=== PATIENT | male | born 1970 | race American Indian/Alaskan Native ===

== ENCOUNTER 2018-05-11 18:10 | Inpatient (IN) | payer BC ==
[2018-05-11] MEDS ORDERED: ASPIRIN PO ONE (18:32)
[2018-05-11] MEDS ORDERED: CATAPRES ONE (18:34)
[2018-05-11] MEDS ORDERED: CATAPRES PO ONE (18:42)
[2018-05-11 18:56] LABS: Basophils % (Auto) 0.6 % (0.0-1.8); Eosinophils # (Auto) 0.1 K/mm3 (0.0-0.4); Eosinophils % (Auto) 1.7 % (0.0-4.3); Hematocrit 37.6 % (35.5-45.6); Hemoglobin 12.1 gm/dl (11.8-15.2); Lymphocytes # (Auto) 2.3 K/mm3 (1.2-5.4); Lymphocytes % (Auto) 26.8 % (13.4-35.0); Mean Corpuscular HGB Conc 32 % (32-34); Mean Corpuscular Hemoglobin 28 pg (28-32); Mean Corpuscular Volume 86 fl (84-94); Monocytes # (Auto) 0.3 K/mm3 (0.0-0.8); Monocytes % (Auto) 3.6 % (0.0-7.3); Platelet Count 272 K/mm3 (140-440); Red Blood Count 4.37 M/mm3 (3.65-5.03); Red Cell Distribution Width 14.3 % (13.2-15.2)
[2018-05-11 19:14] LABS: Calcium 8.4 mg/dL (8.4-10.2)
[2018-05-11] MEDS ORDERED: ANTIVERT PO ONE (23:25)
[2018-05-11] MEDS ORDERED: ZOFRAN IV ONE (23:25)
--- NOTE | 2018-05-11 23:31 | Emergency Department Report ---
HPI - General Chief Complaint: Chest Pain Time Seen by Provider: 05/11/18 23:19 - HPI HPI: Room 5 The patient is a 47-year-old male presenting with chief complaint of dizziness nausea vomiting. The patient states today at approximately 15:00 he began feeling dizzy and experienced nausea and vomiting started seeing spots and became diaphoretic. The patient states these are the exact symptoms he had in the past attributed to vertigo. The patient states normally [id number] motion sickness medication helped but it did not today. The patient states after approximately 3 hours notices symptoms are worsening and this prompted him to come to the ED. Patient denied having chest pain or discomfort of any type, shortness of breath or diarrhea. Location: Head Duration: Constant since 15:00 Quality: Vertigo Severity: Moderate Modifying factors: [see above] Context: [see above] Mode of transportation: Unknown ED Past Medical Hx - Past Medical History Hx Hypertension: Yes Hx Heart Attack/AMI: Yes Hx Diabetes: Yes Hx Renal Disease: Yes - Surgical History Past Surgical History?: No - Family History Family history: no significant - Social History Smoking Status: Former Smoker (none 3 years) Substance Use Type: None ED Review of Systems ROS: Stated complaint: VERTIGO Other details as noted in HPI Constitutional: no symptoms reported Eyes: vision change. denies: eye pain ENT: denies: throat pain Respiratory: denies: shortness of breath Cardiovascular: denies: chest pain Endocrine: denies: unexplained weight loss Gastrointestinal: nausea, vomiting. denies: abdominal pain, diarrhea Genitourinary: denies: dysuria Musculoskeletal: denies: back pain Skin: denies: change in color Neurological: vertigo. denies: headache Physical Exam - Physical Exam Vital Signs: Vital Signs 05/11/18 05/11/18 05/11/18 18:28 18:43 19:34 Temperature 98 F Pulse Rate 93 H 88 84 Respiratory 16 Rate Blood Pressure 245/126 246/125 Blood Pressure 244/131 [Left] O2 Sat by Pulse 97 Oximetry 05/11/18 21:04 Temperature Pulse Rate 74 Respiratory Rate Blood Pressure Blood Pressure 228/124 [Left] O2 Sat by Pulse Oximetry Physical Exam: GENERAL: The patient is well-developed well-nourished male lying on stretcher not appearing to be in acute distress. [] HEENT: Normocephalic. Atraumatic. Extraocular motions are intact. Patient has moist mucous membranes. No nystagmus noted NECK: Supple. No meningitic signs are noted. Trachea midline CHEST/LUNGS: Clear to auscultation. There is no respiratory distress noted. HEART/CARDIOVASCULAR: Regular. There is no tachycardia. There is no gallop rub or murmur. ABDOMEN: Abdomen is soft, nontender. Patient has normal bowel sounds. There is no abdominal distention. SKIN: There is no rash. There is no edema. There is no diaphoresis. NEURO: The patient is awake, alert, and oriented. The patient is cooperative. The patient has no focal neurologic deficits. The patient has normal speech. Cranial nerves II through XII grossly intact, no drift MUSCULOSKELETAL: There is no evidence of acute injury. ED Course Vital Signs 05/11/18 05/11/18 05/11/18 18:28 18:43 19:34 Temperature 98 F Pulse Rate 93 H 88 84 Respiratory 16 Rate Blood Pressure 245/126 246/125 Blood Pressure 244/131 [Left] O2 Sat by Pulse 97 Oximetry 05/11/18 21:04 Temperature Pulse Rate 74 Respiratory Rate Blood Pressure Blood Pressure 228/124 [Left] O2 Sat by Pulse Oximetry ED Medical Decision Making - Lab Data Result diagrams: 05/11/18 18:42 05/11/18 18:42 Laboratory Tests 05/11/18 05/11/18 18:42 18:42 WBC 8.5 RBC 4.37 Hgb 12.1 Hct 37.6 MCV 86 MCH 28 MCHC 32 RDW 14.3 Plt Count 272 Lymph % (Auto) 26.8 Barnes % (Auto) 3.6 Eos % (Auto) 1.7 Baso % (Auto) 0.6 Lymph # 2.3 Barnes # 0.3 Eos # 0.1 Baso # 0.0 Seg Neutrophils % 67.3 Seg Neutrophils # 5.7 Sodium 137 Potassium 5.8 H Chloride 101.6 Carbon Dioxide 19 L Anion Gap 22 BUN 42 H Creatinine 3.3 H Estimated GFR 24 BUN/Creatinine Ratio 13 Glucose 193 H Calcium 8.4 Troponin T 0.075 H Triglycerides 321 H Cholesterol 374 H LDL Cholesterol Direct 298 H HDL Cholesterol 34 L Cholesterol/HDL Ratio 11.00 Laboratory Tests 05/11/18 05/11/18 05/11/18 18:42 18:42 23:27 WBC 8.5 RBC 4.37 Hgb 12.1 Hct 37.6 MCV 86 MCH 28 MCHC 32 RDW 14.3 Plt Count 272 Lymph % (Auto) 26.8 Barnes % (Auto) 3.6 Eos % (Auto) 1.7 Baso % (Auto) 0.6 Lymph # 2.3 Barnes # 0.3 Eos # 0.1 Baso # 0.0 Seg Neutrophils % 67.3 Seg Neutrophils # 5.7 Sodium 137 Potassium 5.8 H Chloride 101.6 Carbon Dioxide 19 L Anion Gap 22 BUN 42 H Creatinine 3.3 H Estimated GFR 24 BUN/Creatinine Ratio 13 Glucose 193 H Calcium 8.4 Troponin T 0.075 H 0.075 H Triglycerides 321 H Cholesterol 374 H LDL Cholesterol Direct 298 H HDL Cholesterol 34 L Cholesterol/HDL Ratio 11.00 - Radiology Data Radiology results: report reviewed (CT head), image reviewed (CT head) [facility] [address] [place] [address] Cat Scan Report Signed Patient: ALEX TORRE MR#: [id number] : 1970 Acct:[id number] Age/Sex: 47 / M ADM Date: 05/11/18 Loc: ED Attending Dr: Ordering Physician: APOLONIA TATE MD Date of Service: 05/11/18 Procedure(s): CT head/brain wo con Accession Number(s): [id number] cc: APOLONIA TATE MD FINAL REPORT PROCEDURE: CT HEAD/BRAIN WO CON TECHNIQUE: Computerized tomography of the head was performed without contrast material. HISTORY: vertigo COMPARISON: No prior studies are available for comparison. FINDINGS: Skull and scalp: Normal. Paranasal sinuses: Normal. Ventricles and subarachnoid spaces: Normal. Cerebrum : No evidence of hemorrhage, acute infarction or mass . Cerebellum and brainstem : No evidence of hemorrhage, acute infarction or mass. Vasculature: Normal. Comments: None. IMPRESSION: Normal Examination Transcribed By: [facility] Dictated By: PRINCE GREGG MD Electronically Authenticated By: PRINCE GREGG MD Signed Date/Time: 05/11/182347 DD/ 47 TD/TT: 05/11/182347 - Differential Diagnosis vertigo, ACS ICH Critical care attestation.: If time is entered above; I have spent that time in minutes in the direct care of this critically ill patient, excluding procedure time. ED Disposition Clinical Impression: Renal insufficiency, Hyperkalemia, Dizziness, Nausea & vomiting, Elevated troponin Disposition: DC-09 OP ADMIT IP TO THIS HOSP Is pt being admited?: Yes Does the pt Need Aspirin: No (renal insufficiency) Condition: Fair Referrals: PRIMARY CARE,MD [Primary Care Provider] - 3-5 Days Time of Disposition: 00:42 (hospitalist notified (Dr. Whitlock))
[2018-05-11] MEDS ORDERED: HumuLIN R IV ONE (23:36)
[2018-05-11] MEDS ORDERED: KIONEX PO ONE (23:36)
[2018-05-11] MEDS ORDERED: PROVENTIL IH ONE (23:36)
[2018-05-11] MEDS ORDERED: D50W (25GM) Syringe IV ONE (23:36)
--- NOTE | 2018-05-11 23:53 | Cat Scan Report ---
FINAL REPORT PROCEDURE: CT HEAD/BRAIN WO CON TECHNIQUE: Computerized tomography of the head was performed without contrast material. HISTORY: vertigo COMPARISON: No prior studies are available for comparison. FINDINGS: Skull and scalp: Normal. Paranasal sinuses: Normal. Ventricles and subarachnoid spaces: Normal. Cerebrum: No evidence of hemorrhage, acute infarction or mass . Cerebellum and brainstem: No evidence of hemorrhage, acute infarction or mass. Vasculature: Normal. Comments: None. IMPRESSION: Normal Examination
[2018-05-12] MEDS ORDERED: PLAVIX PO ONE (00:08)
[2018-05-12] MEDS ORDERED: D50W (25GM) Syringe IV PRN (01:03)
[2018-05-12] MEDS ORDERED: SODIUM CHLORIDE FLUSH SYRINGE 10 ML IV PRN (01:03)
[2018-05-12] MEDS ORDERED: TYLENOL PO PRN (01:03)
[2018-05-12] MEDS ORDERED: ZOFRAN IV PRN (01:03)
[2018-05-12] MEDS ORDERED: NORVASC PO NR (01:14)
[2018-05-12] MEDS ORDERED: APRESOLINE IV PRN (01:14)
[2018-05-12] MEDS ORDERED: NACL 0.45% 1000 ML 1,000 ML IV SCH (02:00)
[2018-05-12] MEDS: APRESOLINE PO SCH ×3 (02:02→17:56)
--- NOTE | 2018-05-12 02:09 | History and Physical Report ---
History of Present Illness Date of examination: 05/12/18 Chief complaint: Dizziness and vomiting since this afternoon History of present illness: 47-year-old -[place] male with multiple medical conditions including hypertension dyslipidemia CHF CAD diabetes and CKD Was seen in the ED with complaints of dizziness and vomiting. He tried some [id number] medication for motion sickness which did not help and he decided to go to the ED. He had about 4 episodes of vomiting. At the time of my evaluation, he states his dizziness and vomiting have improved. He offers no other complaints. During the workup in the ED, he was noted to be hyperkalemic, uncontrolled hypertension and with advanced renal disease and has been admitted for further management. He has not taken any medications for more than 6 months for his multiple medical conditions except insulin which he takes intermittently. He denies any fever or chills. Denies any weight gain or weight loss Past History Past Medical History: CAD, diabetes, heart failure, hypertension, hyperlipidemia , renal failure Past Surgical History: No surgical history Social history: no significant social history. denies: smoking, alcohol abuse, prescription drug abuse, IV drug use Family history: CAD, diabetes, hypertension Medications and Allergies Allergies Allergy/AdvReac Type Severity Reaction Status Date / Time No Known Allergies Allergy Verified 05/11/18 18:27 Active Meds: Active Medications Acetaminophen (Tylenol) 650 mg PO Q4H PRN PRN Reason: Pain MILD(1-3)/Fever >100.5/AMAYA Amlodipine Besylate (Norvasc) 5 mg PO ONCE NR Stop: 05/12/18 03:00 Aspirin (Aspirin) 81 mg PO QDAY [facility] Atorvastatin Calcium (Lipitor) 40 mg PO QHS [facility] Dextrose (D50w (25gm) Syringe) 50 ml IV PRN PRN PRN Reason: Hypoglycemia Famotidine (Pepcid) 10 mg PO BID [facility] Heparin Sodium (Porcine) (Heparin) 5,000 unit SUB-Q Q12HR [facility] Hydralazine HCl (Apresoline) 50 mg PO Q8H MAT Last Admin: 05/12/18 02:02 Dose: 50 mg Hydralazine HCl (Apresoline) 10 mg IV Q6H PRN PRN Reason: Hypertension Sodium Chloride (Nacl 0.45% 1000 Ml) 1,000 mls @ 75 mls/hr IV DIRECT [facility] Insulin Glargine (Lantus) 15 units SUB-Q QHS MAT Insulin Human Lispro (Humalog) 0 unit SUB-Q ACHS MAT; Protocol Ondansetron HCl (Zofran) 4 mg IV Q8H PRN PRN Reason: Nausea And Vomiting Sodium Chloride (Sodium Chloride Flush Syringe 10 Ml) 10 ml IV BID MAT Sodium Chloride (Sodium Chloride Flush Syringe 10 Ml) 10 ml IV PRN PRN PRN Reason: LINE FLUSH Review of Systems Constitutional: no weight loss, no fever, no chills, no fatigue Ears, nose, mouth and throat: no ear pain, no ear discharge, no nasal congestion , no sore throat Cardiovascular: high blood pressure, no chest pain, no orthopnea, no palpitations, no edema, no syncope, no shortness of breath Respiratory: no cough, no shortness of breath, no dyspnea on exertion Gastrointestinal: nausea, vomiting, no abdominal pain, no diarrhea, no constipation, no melena Genitourinary Male: no dysuria, no urinary frequency, no incontinence Rectal: no pain Musculoskeletal: no neck pain, no low back pain Integumentary: no rash Neurological: no seizures, no syncope, no vertigo, no headaches Psychiatric: no anxiety, no depression Endocrine: no polyphagia, no excessive thirst, no polydipsia, no polyuria Exam - Constitutional Vitals: Temp Pulse Resp BP Pulse Ox 98 F 91 H 21 200/117 97 05/11/18 18:28 05/12/18 01:45 05/12/18 01:45 05/12/18 02:02 05/12/18 01:45 General appearance: Present: no acute distress - EENT Eyes: Present: PERRL, EOM intact ENT: hearing intact, clear oral mucosa - Neck Neck: Present: supple, normal ROM. Absent: masses or JVD - Respiratory Respiratory effort: normal Respiratory: bilateral: CTA, negative: rales, rhonchi - Cardiovascular Rhythm: regular Heart Sounds: Present: S1 & S2 - Extremities Extremities: No edema - Abdominal General gastrointestinal: Present: soft, non-tender. Absent: hepatomegaly, splenomegaly Male genitourinary: Present: deferred - Rectal Rectal Exam: deferred - Integumentary Integumentary: Present: clear - Musculoskeletal Musculoskeletal: strength equal bilaterally - Psychiatric Psychiatric: appropriate mood/affect, intact judgment & insight - Neurologic Neurologic: no focal deficits, moves all extremities Results - Labs CBC & Chem 7: 05/11/18 18:42 05/11/18 18:42 Labs: Abnormal lab results 05/11/18 05/11/18 05/12/18 Range/Units 18:42 23:27 00:07 Potassium 5.8 H (3.6-5.0) mmol/L Carbon Dioxide 19 L (22-30) mmol/L BUN 42 H (9-20) mg/dL Creatinine 3.3 H (0.8-1.5) mg/dL Glucose 193 H (75-100) mg/dL Troponin T 0.075 H 0.075 H 0.072 H (0.00-0.029) ng/mL NT-Pro-B Natriuret Pep (0-450) pg/mL Triglycerides 321 H (2-149) mg/dL Cholesterol 374 H (50-199) mg/dL LDL Cholesterol Direct 298 H (50-130) mg/dL HDL Cholesterol 34 L (40-59) mg/dL 05/12/18 Range/Units 00:55 Potassium (3.6-5.0) mmol/L Carbon Dioxide (22-30) mmol/L BUN (9-20) mg/dL Creatinine (0.8-1.5) mg/dL Glucose (75-100) mg/dL Troponin T (0.00-0.029) ng/mL NT-Pro-B Natriuret Pep 4770 H (0-450) pg/mL Triglycerides (2-149) mg/dL Cholesterol (50-199) mg/dL LDL Cholesterol Direct (50-130) mg/dL HDL Cholesterol (40-59) mg/dL Assessment and Plan - Patient Problems (1) Acute kidney injury superimposed on chronic kidney disease Current Visit: Yes Status: Acute Plan to address problem: Patient admits to stage III chronic kidney disease and at this time it's stage IV We will gently hydrate the patient Renal consult Avoid nephrotoxins Renally dose medications (2) Hypertension Current Visit: Yes Status: Chronic Qualifiers: Hypertension type: essential hypertension Qualified Code(s): I10 - Essential (primary) hypertension Plan to address problem: Started on medications Monitor blood pressure closely and adjust medications as needed (3) Type 2 diabetes mellitus Current Visit: Yes Status: Chronic 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 Diabetes mellitus complication status: with kidney complications Diabetes mellitus complication detail: with chronic kidney disease Chronic kidney disease stage : stage 4 (severe) Qualified Code(s): E11.22 - Type 2 diabetes mellitus with diabetic chronic kidney disease; N18.4 - Chronic kidney disease, stage 4 (severe ); Z79.4 - alf (current) use of insulin Plan to address problem: Start on insulin sliding scale and also on basal insulin (4) Dyslipidemia Current Visit: Yes Status: Chronic Plan to address problem: Start on statin (5) Dizziness Current Visit: Yes Status: Acute Plan to address problem: His dizziness appears to have resolved Restart on meclizine as needed (6) Elevated troponin Current Visit: Yes Status: Acute Plan to address problem: Patient denies any chest pain Most likely nonspecific in the setting of severe renal insufficiency Please call tar heat exchanger cleaner in the morning (7) Hyperkalemia Current Visit: Yes Status: Acute Plan to address problem: Patient was given Kayexalate in the ED Monitor serum electrolytes This is most likely secondary to chronic kidney disease (8) Nausea & vomiting Current Visit: Yes Status: Acute Qualifiers: Vomiting Intractability: unspecified Plan to address problem: This seems to have improved Continue Zofran as needed
[2018-05-12] MEDS: HumaLOG SUB-Q SCH ×4 (08:00→23:05)
--- NOTE | 2018-05-12 09:05 | Progress Note ---
Assessment and Plan Assessment and plan: Mr. Lackey is a 47 yo man with history of CAD/AMI, dyslipidemia, CHF (records at [facility] [place]), hypertension, CKD 3, NIDDM and ex tobacco smoker who presented to [facility] ED with chest pains, dizziness, n/v. His blood pressure was 245/126 with HR 93. He attributed symptoms to Vertigo. He also admits to no medications for 6 months or so. Labs revealed K 5.8, Cr 3.3 (no baseline in our EMR), Troponin of 0.075, LDL 298 and proBNP 4770 * CT head w/o contrast reported as normal * EKG reviewed -Acute kidney injury superimposed on chronic kidney disease 3, vasomotor nephropathy, poa: Renal consulted, repeat levels -Suspected Acute on chronic heart failure, poa: start iv lasix, get ECHO, consulted Cardiology, get CXR also -Hypertension malignancy with urgency: treat with iv antihypertensives stat, Monitor blood pressure closely and adjust medications as needed -Type 2 diabetes mellitus: Start on insulin sliding scale and also on basal insulin -Dyslipidemia: Start on statin -Dizziness, possibly related to extreme hypertension -Elevated troponin, suspect related to renal disease, hypertension defer to Cardiology: consulted Cardiology, treat with asa, statin, -Hyperkalemia, metabolic acidosis from ARF: Patient was given Kayexalate in the ED, Monitor serum electrolytes -Nausea & vomiting, etiology: Continue Zofran as needed -DVT prophylaxis: sq heparin CCT 32 minutes History Interval history: Patient was seen and examined. Follow-up on current diagnosis of dizziness which is still present, does NOT occur with room spinning, happens when he turns his head. Overnight uneventful. Patient denies any chest pain, shortness breath, nausea/vomiting or severe headaches. Imaging, nursing note, chart, labs and old chart reviewed. Discussed with patient. He denies ever having chest pains. Hospitalist Physical - Physical exam Narrative exam: GEN: WDWN, NAD, Awake, Alert, Orientated x 3, bmi 38.5 HEENT: NCAT, EOMI, PERRL, OP Clear NECK: supple, no adenopathy, no thyromegaly, equivocal JVD CVS/HEART: RRR, normal S1S2, pulses present bilaterally CHEST/LUNGS: diminished bilateral, Symmetrical chest expansion, good air entry bilaterally GI/Abdomen: soft, NTND, good bowel sounds, no guarding or rebound /Bladder: no suprapubic tenderness, no CVA or paraspinal tenderness EXT/Skin: 2+ ble pitting leg edema, no obvious rash MSK: FROM x 4 Neuro: CN 2-12 grossly intact, no new focal deficits, no nystagmus Psych: calm - Constitutional Vitals: Temp Pulse Resp BP Pulse Ox 97.9 F 74 14 168/83 98 05/12/18 08:19 05/12/18 08:19 05/12/18 08:19 05/12/18 08:19 05/12/18 08:19 General appearance: Present: no acute distress Results - Labs CBC & Chem 7: 05/11/18 18:42 05/11/18 18:42 Labs: Laboratory Last Values WBC 8.5 K/mm3 (4.5-11.0) 05/11/18 18:42 RBC 4.37 M/mm3 (3.65-5.03) 05/11/18 18:42 Hgb 12.1 gm/dl (11.8-15.2) 05/11/18 18:42 Hct 37.6 % (35.5-45.6) 05/11/18 18:42 MCV 86 fl (84-94) 05/11/18 18:42 MCH 28 pg (28-32) 05/11/18 18:42 MCHC 32 % (32-34) 05/11/18 18:42 RDW 14.3 % (13.2-15.2) 05/11/18 18:42 Plt Count 272 K/mm3 (140-440) 05/11/18 18:42 Lymph % (Auto) 26.8 % (13.4-35.0) 05/11/18 18:42 [place] % (Auto) 3.6 % (0.0-7.3) 05/11/18 18:42 Eos % (Auto) 1.7 % (0.0-4.3) 05/11/18 18:42 Baso % (Auto) 0.6 % (0.0-1.8) 05/11/18 18:42 Lymph # 2.3 K/mm3 (1.2-5.4) 05/11/18 18:42 [place] # 0.3 K/mm3 (0.0-0.8) 05/11/18 18:42 Eos # 0.1 K/mm3 (0.0-0.4) 05/11/18 18:42 Baso # 0.0 K/mm3 (0.0-0.1) 05/11/18 18:42 Seg Neutrophils % 67.3 % (40.0-70.0) 05/11/18 18:42 Seg Neutrophils # 5.7 K/mm3 (1.8-7.7) 05/11/18 18:42 Sodium 137 mmol/L (137-145) 05/11/18 18:42 Potassium 5.8 mmol/L (3.6-5.0) H 05/11/18 18:42 Chloride 101.6 mmol/L (98-107) 05/11/18 18:42 Carbon Dioxide 19 mmol/L (22-30) L 05/11/18 18:42 Anion Gap 22 mmol/L 05/11/18 18:42 BUN 42 mg/dL (9-20) H 05/11/18 18:42 Creatinine 3.3 mg/dL (0.8-1.5) H 05/11/18 18:42 Estimated GFR 24 ml/min 05/11/18 18:42 BUN/Creatinine Ratio 13 % 05/11/18 18:42 Glucose 193 mg/dL (75-100) H 05/11/18 18:42 POC Glucose 153 (70-105) H 05/12/18 07:07 Calcium 8.4 mg/dL (8.4-10.2) 05/11/18 18:42 Troponin T 0.072 ng/mL (0.00-0.029) H 05/12/18 00:07 NT-Pro-B Natriuret Pep 4770 pg/mL (0-450) H 05/12/18 00:55 Triglycerides 321 mg/dL (2-149) H 05/11/18 18:42 Cholesterol 374 mg/dL (50-199) H 05/11/18 18:42 LDL Cholesterol Direct 298 mg/dL (50-130) H 05/11/18 18:42 HDL Cholesterol 34 mg/dL (40-59) L 05/11/18 18:42 Cholesterol/HDL Ratio 11.00 % 05/11/18 18:42
--- NOTE | 2018-05-12 09:54 | XRay Report ---
FINAL REPORT EXAM: XR CHEST 1V AP HISTORY: chf TECHNIQUE: Frontal chest x-ray. PRIORS: None currently available. FINDINGS: Cardiac silhouette is within normal limits. There is no effusion. There is no pneumothorax. There is no consolidation. There are no suspicious osseous lesions. IMPRESSION: No acute cardiopulmonary findings.
[2018-05-12] MEDS ORDERED: PEPCID PO SCH (10:00)
[2018-05-12] MEDS: ASPIRIN PO SCH (10:30)
[2018-05-12] MEDS: PEPCID PO SCH ×2 (10:31→23:04)
[2018-05-12] MEDS: HEPARIN SUB-Q SCH ×3 (10:31→23:10)
[2018-05-12] MEDS: SODIUM CHLORIDE FLUSH SYRINGE 10 ML IV SCH ×2 (10:32→23:10)
--- NOTE | 2018-05-12 16:16 | Consultation ---
History of Present Illness - Reason for Consult Consult date: 05/12/18 acute renal failure, chronic renal failure Requesting physician: SERGE THOMSON - History of Present Illness 57-year-old male with a history of diabetes mellitus diagnosed in 1999, hypertension who was started on medications about a year ago but has been poorly compliant. Patient presented on account of nausea and vomiting of 4 days ' duration with dizziness for 1 day. He feels room is spinning around. Patient has these episodes about once a year and usually takes [id number] motion sickness medication and lies down for about 2 hours with relief. This time however, despite taking the medication he was feeling worse and became diaphoretic and so he got concerned and so called the ambulance and was brought to the hospital. Denies any chest pain or palpitations but admits to lower extremity swelling usually at the end of the workday. He does have a history of coronary coronary artery disease was meant to get a cardiac catheterization at [facility] but this was canceled due to the advanced kidney disease. BUN/creatinine were high at 42/3.3 mg/dL with potassium high at 5.8 mg/dl and bicarbonate low at 19 mmol per liter. He is aware that he has stage III chronic kidney disease but does not know the exact degree of renal function. Past History Past Medical History: anemia, CAD, diabetes, heart failure, hypertension, hyperlipidemia, renal failure Past Surgical History: No surgical history Social history: no significant social history, lives with family. denies: smoking (Quit 20 years ago), alcohol abuse (Quit 20 years ago), prescription drug abuse, IV drug use Family history: CAD (both parents of acute myocardial infarction mother at age 73 and father in his 50s.), diabetes (Brother had type 2 diabetes mellitus multiple sclerosis at age 47), hypertension Medications and Allergies Allergies Allergy/AdvReac Type Severity Reaction Status Date / Time No Known Allergies Allergy Verified 05/11/18 18:27 Active Meds: Active Medications Acetaminophen (Tylenol) 650 mg PO Q4H PRN PRN Reason: Pain MILD(1-3)/Fever >100.5/AMAYA Aspirin (Aspirin) 81 mg PO QDAY [facility] Last Admin: 05/12/18 10:30 Dose: 81 mg Atorvastatin Calcium (Lipitor) 40 mg PO QHS [facility] Dextrose (D50w (25gm) Syringe) 50 ml IV PRN PRN PRN Reason: Hypoglycemia Famotidine (Pepcid) 10 mg PO BID [facility] Last Admin: 05/12/18 10:31 Dose: 10 mg Furosemide (Lasix) 20 mg IV 0600,1800 [facility] Heparin Sodium (Porcine) (Heparin) 5,000 unit SUB-Q Q12HR [facility] Last Admin: 05/12/18 10:31 Dose: 5,000 unit Hydralazine HCl (Apresoline) 50 mg PO Q8H [facility] Last Admin: 05/12/18 10:34 Dose: 50 mg Hydralazine HCl (Apresoline) 10 mg IV Q6H PRN PRN Reason: Hypertension Insulin Glargine (Lantus) 15 units SUB-Q QHS [facility] Insulin Human Lispro (Humalog) 0 unit SUB-Q ACHS [facility]; Protocol Last Admin: 05/12/18 12:15 Dose: 2 unit Meclizine HCl (Antivert) 25 mg PO Q8H PRN PRN Reason: Vertigo Ondansetron HCl (Zofran) 4 mg IV Q8H PRN PRN Reason: Nausea And Vomiting Sodium Chloride (Sodium Chloride Flush Syringe 10 Ml) 10 ml IV BID [facility] Last Admin: 05/12/18 10:32 Dose: 10 ml Sodium Chloride (Sodium Chloride Flush Syringe 10 Ml) 10 ml IV PRN PRN PRN Reason: LINE FLUSH Review of Systems All systems: negative (Constitutional: no fever or chills. No anorexia or weight loss. HEENT: No sore throat or sinus drainage no hearing or vision impairment . Cardiovascular: See history of present illness Respiratory: Admits to cough not productive of sputum, no shortness of breath, hemoptysis or wheezing. Gastrointestinal: Admits to nausea or vomiting. No diarrhea, abdominal pain, hematemesis or melena. Genitourinary: No frequency urgency dysuria or hematuria. hematologic: No abnormal bleeding or bruising. Integumentary: no pruritus or rash. Neurological: Admits to headache no focal weakness or numbness, no syncope or seizures. Musculoskeletal: Admits to have feelings here for an walking, no stiffness. Psychiatry: no anxiety but admits to depression) Exam - Vital Signs Vital signs: Vital Signs Temp Pulse Resp BP Pulse Ox 98 F 93 H 16 245/126 97 05/11/18 18:28 05/11/18 18:28 05/11/18 18:28 18 18:28 05/11/18 18:28 - Physical Exam Narrative exam: Obese middle-aged -[place]ian male lying in bed in no acute distress HEENT: NCAT, pink oral mucous membrane Neck: Supple, no venous distention CVS: S1S2 RRR with no murmur, rub or gallop Chest: Clear to auscultation Abdomen: Protuberant, soft, nontender, no organomegaly, bowel sounds are present Extremities: Mild edema with pigmentary changes in both legs Skin warm and dry with hyperpigmentation and legs Genitourinary deferred Neuro: Awake, alert no focal deficits Results - Lab Results 05/11/18 18:42 05/11/18 18:42 Most recent lab results Calcium 8.4 mg/dL (8.4-10.2) 05/11/18 18:42 Assessment and Plan - Patient Problems (1) Acute kidney injury superimposed on chronic kidney disease Current Visit: Yes Status: Acute Plan to address problem: Acute kidney injury probably superimposed on chronic kidney disease. Chronic kidney disease present within secondary to diabetic nephropathy/hypertensive nephrosclerosis. Acute kidney injury etiology uncertain. Would hold diuretics. Get urine studies. Get records from [facility] to ascertain baseline kidney function. (2) Hyperkalemia Current Visit: Yes Status: Acute Plan to address problem: Secondary to decreased potassium clearance with advanced chronic kidney disease. Also need to consider type IV renal tubular acidosis in the setting of diabetic nephropathy. Treat hyperkalemia medically. (3) Vertigo Current Visit: Yes Status: Acute Plan to address problem: Need to consider MRI of the brain with persistent vertigo in the setting of nausea and vomiting (4) Hypertensive chronic kidney disease with stage 1 through stage 4 chronic kidney disease, or unspecified chronic kidney disease Current Visit: Yes Status: Acute Plan to address problem: Follow-up blood pressure on adjusted medications. Expressed the importance of controlling his blood pressure long-term to avoid strokes, heart attacks, retinopathy, and worsening kidney function (5) Type 2 diabetes mellitus with diabetic nephropathy Current Visit: Yes Status: Acute Plan to address problem: Blood sugar management by primary attending. Also stressed importance of good blood sugar control (6) Chronic systolic CHF (congestive heart failure) Current Visit: Yes Status: Acute Plan to address problem: Does not appear to have acute suspicion. We'll hold Lasix and follow patient's clinical symptoms and signs (7) Hyperlipidemia Current Visit: Yes Status: Acute Plan to address problem: Needs to be back on a statin.
[2018-05-12 17:10] LABS: Calcium 8.4 mg/dL (8.4-10.2)
[2018-05-12] MEDS ORDERED: LASIX IV SCH (18:00)
[2018-05-12] MEDS: LANTUS SUB-Q SCH (23:03)
[2018-05-13] MEDS: APRESOLINE PO SCH ×3 (01:46→17:34)
[2018-05-13 02:07] LABS: Bilirubin,Urine NEG (Negative); Blood,Urine NEG (Negative); Color,Urine Yellow (Yellow); Mucus,Urine FEW /HPF; RBC,Urine < 1.0 /HPF (0.0-6.0); Urobilinogen,Urine < 2.0 mg/dL (<2.0)
[2018-05-13 02:15] LABS: Creatinine,Urine 66.1 mg/dL (0.1-20.0)
[2018-05-13] MEDS: HumaLOG SUB-Q SCH ×4 (07:15→21:24)
[2018-05-13 08:12] LABS: Calcium 8.2 mg/dL (8.4-10.2)
--- NOTE | 2018-05-13 09:41 | Progress Note ---
Assessment and Plan Assessment and plan: Mr. Lackey is a 47 yo man with history of CAD/AMI, dyslipidemia, CHF (records at [facility]), hypertension, CKD 3, NIDDM and ex tobacco smoker who presented to [facility] ED with chest pains, dizziness, n/v. His blood pressure was 245/126 with HR 93. He attributed symptoms to Vertigo. He also admits to no medications for 6 months or so. Labs revealed K 5.8, Cr 3.3 (no baseline in our EMR), Troponin of 0.075, LDL 298 and proBNP 4770 * CT head w/o contrast reported as normal * EKG reviewed -Acute kidney injury superimposed on chronic kidney disease 3, vasomotor nephropathy, poa: Renal consulted, repeat levels -Suspected Acute on chronic heart failure, poa: start iv lasix stopped by Nephrology, get ECHO, consulted Cardiology, get CXR==>negative -Hypertension malignancy with urgency: treat with iv antihypertensives stat, Monitor blood pressure closely and adjust medications as needed -Type 2 diabetes mellitus: Start on insulin sliding scale and also on basal insulin -Dyslipidemia: Start on statin -Dizziness: workup -Elevated troponin, suspect related to renal disease, hypertension defer to Cardiology: consulted Cardiology, treat with asa, statin, -Hyperkalemia, metabolic acidosis from [facility]: Patient was given Kayexalate in the ED, Monitor serum electrolytes -Nausea & vomiting, etiology: Continue Zofran as needed -DVT prophylaxis: sq heparin Dizziness still remains: carotid doppler and orthostatic vitals Renal function, Cr increasing, lasix stopped ECHO pending CCT 31 minutes History Interval history: Patient was seen and examined. Follow-up on current diagnosis of dizziness which is still present. Overnight uneventful. Patient denies any chest pain, shortness breath, nausea/vomiting or severe headaches. Imaging, nursing note, chart, labs and old chart reviewed. Discussed with patient. He denies ever having chest pains. Hospitalist Physical - Physical exam Narrative exam: GEN: WDWN, NAD, Awake, Alert, Orientated x 3, bmi 38.5 HEENT: NCAT, EOMI, PERRL, OP Clear NECK: supple, no adenopathy, no thyromegaly, equivocal JVD CVS/HEART: RRR, normal S1S2, pulses present bilaterally CHEST/LUNGS: diminished bilateral, Symmetrical chest expansion, good air entry bilaterally GI/Abdomen: soft, NTND, good bowel sounds, no guarding or rebound /Bladder: no suprapubic tenderness, no CVA or paraspinal tenderness EXT/Skin: 2+ ble pitting leg edema, no obvious rash MSK: FROM x 4 Neuro: CN 2-12 grossly intact, no new focal deficits, no nystagmus Psych: calm - Constitutional Vitals: Temp Pulse Resp BP Pulse Ox 98.1 F 72 18 156/88 99 05/13/18 08:03 05/13/18 08:03 05/13/18 08:03 05/13/18 08:03 05/13/18 08:03 General appearance: Present: no acute distress Results - Labs CBC & Chem 7: 05/11/18 18:42 05/13/18 07:03 Labs: Laboratory Last Values WBC 8.5 K/mm3 (4.5-11.0) 05/11/18 18:42 RBC 4.37 M/mm3 (3.65-5.03) 05/11/18 18:42 Hgb 12.1 gm/dl (11.8-15.2) 05/11/18 18:42 Hct 37.6 % (35.5-45.6) 05/11/18 18:42 MCV 86 fl (84-94) 05/11/18 18:42 MCH 28 pg (28-32) 05/11/18 18:42 MCHC 32 % (32-34) 05/11/18 18:42 RDW 14.3 % (13.2-15.2) 05/11/18 18:42 Plt Count 272 K/mm3 (140-440) 05/11/18 18:42 Lymph % (Auto) 26.8 % (13.4-35.0) 05/11/18 18:42 Roberts % (Auto) 3.6 % (0.0-7.3) 05/11/18 18:42 Eos % (Auto) 1.7 % (0.0-4.3) 05/11/18 18:42 Baso % (Auto) 0.6 % (0.0-1.8) 05/11/18 18:42 Lymph # 2.3 K/mm3 (1.2-5.4) 05/11/18 18:42 Roberts # 0.3 K/mm3 (0.0-0.8) 05/11/18 18:42 Eos # 0.1 K/mm3 (0.0-0.4) 05/11/18 18:42 Baso # 0.0 K/mm3 (0.0-0.1) 05/11/18 18:42 Seg Neutrophils % 67.3 % (40.0-70.0) 05/11/18 18:42 Seg Neutrophils # 5.7 K/mm3 (1.8-7.7) 05/11/18 18:42 Sodium 138 mmol/L (137-145) 05/13/18 07:03 Potassium 4.5 mmol/L (3.6-5.0) 05/13/18 07:03 Chloride 104.1 mmol/L (98-107) 05/13/18 07:03 Carbon Dioxide 21 mmol/L (22-30) L 05/13/18 07:03 Anion Gap 17 mmol/L 05/13/18 07:03 BUN 46 mg/dL (9-20) H 05/13/18 07:03 Creatinine 3.7 mg/dL (0.8-1.5) H 05/13/18 07:03 Estimated GFR 21 ml/min 05/13/18 07:03 BUN/Creatinine Ratio 12 % 05/13/18 07:03 Glucose 118 mg/dL (75-100) H 05/13/18 07:03 POC Glucose 134 (70-105) H 05/13/18 06:17 Calcium 8.2 mg/dL (8.4-10.2) L 05/13/18 07:03 Phosphorus 4.00 mg/dL (2.5-4.5) 05/12/18 16:34 Troponin T 0.072 ng/mL (0.00-0.029) H 05/12/18 00:07 NT-Pro-B Natriuret Pep 4770 pg/mL (0-450) H 05/12/18 00:55 Triglycerides 321 mg/dL (2-149) H 05/11/18 18:42 Cholesterol 374 mg/dL (50-199) H 05/11/18 18:42 LDL Cholesterol Direct 298 mg/dL (50-130) H 05/11/18 18:42 HDL Cholesterol 34 mg/dL (40-59) L 05/11/18 18:42 Cholesterol/HDL Ratio 11.00 % 05/11/18 18:42 Urine Color Yellow (Yellow) 05/13/18 00:01 Urine Turbidity Clear (Clear) 05/13/18 00:01 Urine pH 6.0 (5.0-7.0) 05/13/18 00:01 Ur Specific Berthold 1.009 (1.003-1.030) 05/13/18 00:01 Urine Protein 100 mg/dl mg/dL (Negative) 05/13/18 00:01 Urine Glucose (UA) 50 mg/dL (Negative) 05/13/18 00:01 Urine Ketones Neg mg/dL (Negative) 05/13/18 00:01 Urine Blood Neg (Negative) 05/13/18 00:01 Urine Nitrite Neg (Negative) 05/13/18 00:01 Urine Bilirubin Neg (Negative) 05/13/18 00:01 Urine Urobilinogen < 2.0 mg/dL (<2.0) 05/13/18 00:01 Ur Leukocyte Esterase Neg (Negative) 05/13/18 00:01 Urine WBC (Auto) 1.0 /HPF (0.0-6.0) 05/13/18 00:01 Urine RBC (Auto) < 1.0 /HPF (0.0-6.0) 05/13/18 00:01 U Epithel Cells (Auto) < 1.0 /HPF (0-13.0) 05/13/18 00:01 Urine Mucus Few /HPF 05/13/18 00:01 Urine Creatinine 66.1 mg/dL (0.1-20.0) H 05/13/18 00:01 Urine Sodium 31 mmol/L 05/13/18 00:01 Urine Total Protein 256 mg/dL (5-11.8) H 05/13/18 00:01
[2018-05-13] MEDS: ASPIRIN PO SCH (10:20)
[2018-05-13] MEDS: SODIUM CHLORIDE FLUSH SYRINGE 10 ML IV SCH ×2 (10:20→21:34)
[2018-05-13] MEDS: HEPARIN SUB-Q SCH ×2 (10:20→21:32)
[2018-05-13] MEDS: PEPCID PO SCH ×2 (10:20→21:32)
--- NOTE | 2018-05-13 10:20 | Progress Note ---
Assessment and Plan - Patient Problems (1) Acute kidney injury superimposed on chronic kidney disease Current Visit: Yes Status: Acute Plan to address problem: Acute kidney injury probably superimposed on chronic kidney disease. Chronic kidney disease presumably secondary to diabetic nephropathy/hypertensive nephrosclerosis. Acute kidney injury etiology uncertain. Kidney function is marginally worse. Patient has nephrotic range proteinuria suggesting baseline diabetic nephropathy. We'll follow up records from [facility]. (2) Hyperkalemia Current Visit: Yes Status: Acute Plan to address problem: Secondary to decreased potassium clearance with advanced chronic kidney disease. Also need to consider type IV renal tubular acidosis in the setting of diabetic nephropathy. Potassium back to normal (3) Vertigo Current Visit: Yes Status: Acute Plan to address problem: Need to consider MRI of the brain with persistent vertigo (4) Hypertensive chronic kidney disease with stage 1 through stage 4 chronic kidney disease, or unspecified chronic kidney disease Current Visit: Yes Status: Acute Plan to address problem: Follow-up blood pressure on adjusted medications. Expressed the importance of controlling his blood pressure long-term to avoid strokes, heart attacks, retinopathy, and worsening kidney function (5) Type 2 diabetes mellitus with diabetic nephropathy Current Visit: Yes Status: Acute Plan to address problem: Blood sugar management by primary attending. Also stressed importance of good blood sugar control (6) Chronic systolic CHF (congestive heart failure) Current Visit: Yes Status: Acute Plan to address problem: Does not appear to have acute exacerbation. We'll hold Lasix and follow patient 's clinical symptoms and signs (7) Hyperlipidemia Current Visit: Yes Status: Acute Plan to address problem: Needs to be back on a statin. Subjective Date of service: 05/13/18 Principal diagnosis: chronic kidney disease, severe hypertension Interval history: Patient seen lying in bed. Complains of dizziness this morning. Says it's no longer vertigo but lightheadedness. No chest pain or shortness of breath. No nausea or vomiting. Objective - Exam Narrative Exam: Obese middle-aged -British male lying in bed in no acute distress HEENT: NCAT, pink oral mucous membrane Neck: Supple, no venous distention CVS: S1S2 RRR with no murmur, rub or gallop Chest: Clear to auscultation Abdomen: Protuberant, soft, nontender, no organomegaly, bowel sounds are present Extremities: Mild edema with pigmentary changes in both legs Skin warm and dry with hyperpigmentation and legs Genitourinary deferred Neuro: Awake, alert no focal deficits - Vital Signs Vital signs: Vital Signs - 12hr 05/12/18 05/13/18 05/13/18 23:13 04:56 08:03 Temperature 98.2 F 98.1 F 98.1 F Pulse Rate 66 65 72 Respiratory 18 18 18 Rate Blood Pressure 177/89 159/81 156/88 O2 Sat by Pulse 96 98 99 Oximetry - Lab 05/11/18 18:42 05/13/18 07:03 Most recent lab results Calcium 8.2 mg/dL (8.4-10.2) L 05/13/18 07:03 Phosphorus 4.00 mg/dL (2.5-4.5) 05/12/18 16:34 Urine Creatinine 66.1 mg/dL (0.1-20.0) H 05/13/18 00:01 Urine Sodium 31 mmol/L 05/13/18 00:01 Urine Total Protein 256 mg/dL (5-11.8) H 05/13/18 00:01
--- NOTE | 2018-05-13 13:46 | Consultation ---
History of Present Illness Consult date: 05/13/18 Consult reason: other (dizziness) History of present illness: 47-year-old -Green[place] male with multiple medical conditions including hypertension, dyslipidemia, CHF, CAD, diabetes, and CKD Was seen in the ED with complaints of dizziness and vomiting. Patient states he has a long history of dizziness and vertigo. he states that he usually sits down for a few minutes until it passes. In this instance, the dizziness did not pass. He tried some avgg-[id number]-[id number] medication for motion sickness which did not help and he decided to go to the ED. He had about 4 episodes of vomiting. Patient denies any chest pain, SOB, peripheral edema, orthopnea, pnd, palpitations, dizziness or syncope. Past History Past Medical History: anemia, CAD, diabetes, heart failure, hypertension, hyperlipidemia, renal failure Past Surgical History: No surgical history Social history: no significant social history, lives with family. denies: smoking (Quit 20 years ago), alcohol abuse (Quit 20 years ago), prescription drug abuse, IV drug use Family history: CAD (both parents of acute myocardial infarction mother at age 73 and father in his 50s.), diabetes (Brother had type 2 diabetes mellitus multiple sclerosis at age 47), hypertension Medications and Allergies Allergies Allergy/AdvReac Type Severity Reaction Status Date / Time No Known Allergies Allergy Verified 05/11/18 18:27 Active Meds: Active Medications Acetaminophen (Tylenol) 650 mg PO Q4H PRN PRN Reason: Pain MILD(1-3)/Fever >100.5/AMAYA Aspirin (Aspirin) 81 mg PO QDAY [facility] Last Admin: 05/12/18 10:30 Dose: 81 mg Atorvastatin Calcium (Lipitor) 40 mg PO QHS [facility] Last Admin: 05/12/18 23:04 Dose: 40 mg Dextrose (D50w (25gm) Syringe) 50 ml IV PRN PRN PRN Reason: Hypoglycemia Famotidine (Pepcid) 10 mg PO BID [facility] Last Admin: 05/12/18 23:04 Dose: 10 mg Heparin Sodium (Porcine) (Heparin) 5,000 unit SUB-Q Q12HR [facility] Last Admin: 05/12/18 23:10 Dose: Not Given Hydralazine HCl (Apresoline) 50 mg PO Q8H [facility] Last Admin: 05/13/18 01:46 Dose: 50 mg Hydralazine HCl (Apresoline) 10 mg IV Q6H PRN PRN Reason: Hypertension Insulin Glargine (Lantus) 15 units SUB-Q QHS [facility] Last Admin: 05/12/18 23:03 Dose: 15 units Insulin Human Lispro (Humalog) 0 unit SUB-Q ACHS [facility]; Protocol Last Admin: 05/13/18 07:15 Dose: Not Given Meclizine HCl (Antivert) 25 mg PO Q8H PRN PRN Reason: Vertigo Ondansetron HCl (Zofran) 4 mg IV Q8H PRN PRN Reason: Nausea And Vomiting Sodium Chloride (Sodium Chloride Flush Syringe 10 Ml) 10 ml IV BID [facility] Last Admin: 05/12/18 23:10 Dose: Not Given Sodium Chloride (Sodium Chloride Flush Syringe 10 Ml) 10 ml IV PRN PRN PRN Reason: LINE FLUSH Physical Examination Vital Signs Temp Pulse Resp BP Pulse Ox 98 F 93 H 16 245/126 97 05/11/18 18:28 05/11/18 18:28 05/11/18 18:28 05/11/18 18:28 05/11/18 18:28 General appearance: no acute distress HEENT: Positive: PERRL, EOMI Cardiac: Positive: Reg Rate and Rhythm, S1/S2 Lungs: Positive: Normal Exam Neuro: Positive: Cranial Nerve 2-12 Intact Abdomen: Positive: Soft, Active Bowel Sounds Extremities: Absent: edema Results 05/11/18 18:42 05/13/18 07:03 Comprehensive Metabolic Panel 05/12/18 05/13/18 Range/Units 16:34 07:03 Sodium 137 138 (137-145) mmol/L Potassium 4.6 D 4.5 (3.6-5.0) mmol/L Chloride 99.6 104.1 (98-107) mmol/L Carbon Dioxide 21 L 21 L (22-30) mmol/L BUN 44 H 46 H (9-20) mg/dL Creatinine 3.5 H 3.7 H (0.8-1.5) mg/dL Glucose 176 H 118 H (75-100) mg/dL Calcium 8.4 8.2 L (8.4-10.2) mg/dL EKG interpretations - Telemetry EKG Rhythm: Sinus Rhythm Assessment and Plan Acute kidney injury superimposed on chronic kidney disease 3 history of chronic heart failure Hypertension Type 2 diabetes mellitus Dyslipidemia Dizziness Elevated troponin secondary to TAM Check echo Check TSH carotid dopplers pending dizziness is unlikely to be cardiac in origin Maximize antihypertensive therapy Adjust medications based on echo findings as it relates to history of chronic heart failure currently euvolemic
[2018-05-13] MEDS: ANTIVERT PO PRN (21:32)
[2018-05-13] MEDS: LANTUS SUB-Q SCH (21:32)
[2018-05-14] MEDS: APRESOLINE PO SCH ×3 (03:03→17:39)
[2018-05-14 05:49] LABS: Hematocrit 32.7 % (35.5-45.6); Mean Corpuscular HGB Conc 34 % (32-34); Mean Corpuscular Hemoglobin 28 pg (28-32); Mean Corpuscular Volume 84 fl (84-94); Platelet Count 265 K/mm3 (140-440); Red Blood Count 3.88 M/mm3 (3.65-5.03); Red Cell Distribution Width 14.4 % (13.2-15.2)
[2018-05-14 06:13] LABS: Calcium 8.2 mg/dL (8.4-10.2)
[2018-05-14] MEDS: HumaLOG SUB-Q SCH ×4 (07:58→22:20)
--- NOTE | 2018-05-14 09:20 | Progress Note ---
Assessment and Plan - Patient Problems (1) Dizziness Current Visit: Yes Status: Acute (2) Hyperlipidemia Current Visit: Yes Status: Acute (3) Hypertensive chronic kidney disease with stage 1 through stage 4 chronic kidney disease, or unspecified chronic kidney disease Current Visit: Yes Status: Acute (4) Dyslipidemia Current Visit: Yes Status: Chronic (5) Hypertension Current Visit: Yes Status: Chronic Qualifiers: Hypertension type: essential hypertension Qualified Code(s): I10 - Essential (primary) hypertension Subjective Date of service: 05/14/18 Principal diagnosis: chronic kidney disease, severe hypertension Interval history: MILD DIZZ.,,CONSTIPATED,,NO OTHER C\O Objective Vital Signs Temp Pulse Resp BP BP Pulse Ox 05/14/18 07:31 98.6 F 69 20 157/63 96 05/14/18 05:25 98.3 F 68 18 167/71 97 05/14/18 04:32 69 167/71 99 05/14/18 03:03 70 172/86 05/14/18 00:42 98.2 F 70 20 172/86 95 05/13/18 23:57 73 172/86 96 05/13/18 19:44 98.5 F 80 20 190/71 97 05/13/18 19:13 81 190/82 98 05/13/18 18:04 156/72 05/13/18 17:36 218/112 05/13/18 12:02 97.9 F 18 201/106 05/13/18 10:23 169/88 05/13/18 10:21 82 147/84 98 05/13/18 10:18 75 167/90 99 05/13/18 10:16 82 186/90 99 - Physical Examination General: Other (OW) HEENT: Positive: PERRL, EOMI Neck: Positive: neck supple Cardiac: Positive: Reg Rate and Rhythm Lungs: Positive: clear to auscultation Neuro: Positive: Cranial Nerve 2-12 Intact Abdomen: Positive: Soft, Active Bowel Sounds Musculoskeletal: Normal Range of Motion Extremities: Absent: edema - Labs and Meds CBC 05/14/18 Range/Units 04:56 WBC 7.5 (4.5-11.0) K/mm3 RBC 3.88 (3.65-5.03) M/mm3 Hgb 11.0 L (11.8-15.2) gm/dl Hct 32.7 L (35.5-45.6) % Plt Count 265 (140-440) K/mm3 Comprehensive Metabolic Panel 05/14/18 Range/Units 04:56 Sodium 137 (137-145) mmol/L Potassium 4.5 (3.6-5.0) mmol/L Chloride 104.4 (98-107) mmol/L Carbon Dioxide 20 L (22-30) mmol/L BUN 48 H (9-20) mg/dL Creatinine 3.5 H (0.8-1.5) mg/dL Glucose 117 H (75-100) mg/dL Calcium 8.2 L (8.4-10.2) mg/dL
[2018-05-14] MEDS: NORVASC PO SCH (09:43)
[2018-05-14] MEDS: HEPARIN SUB-Q SCH ×2 (09:43→21:39)
[2018-05-14] MEDS: ASPIRIN PO SCH (09:43)
[2018-05-14] MEDS: PEPCID PO SCH ×2 (09:43→21:34)
[2018-05-14] MEDS: SODIUM CHLORIDE FLUSH SYRINGE 10 ML IV SCH ×2 (09:44→21:33)
[2018-05-14] MEDS ORDERED: DULCOLAX PR NR (10:07)
--- NOTE | 2018-05-14 12:07 | Magnetic Resonance Report ---
MRI BRAIN WITHOUT CONTRAST: 05/14/18 CLINICAL: Persistent vertigo, headaches and dizziness. TECHNIQUE: Axial diffusion, T1, T2, gradient echo T2*, coronal and axial FLAIR and sagittal T1 sequences on a 1.5 Maria Guadalupe magnet. FINDINGS: The ventricles and sulci are normal for age. No restricted diffusion. Focal T2 hyperintense signal of the right frontoparietal periventricular white matter on FLAIR and T2. There is associated central flow void the pattern suggests a developmental venous malformation. A smaller left parietal lobe white matter focal hyperintensity on FLAIR and no other abnormal signal. No mass or mass effect. No hemorrhage, edema or extra-axial collection. Normal pituitary and optic chiasm. The brainstem and cerebellum are normal. Intact vascular flow voids. Mild sinusitis with bilateral ethmoid and left maxillary mucoperiosteal thickening. A 12 mm right maxillary mucous retention cyst. The orbits, and soft tissues are normal. Normal calvarium and skull base. IMPRESSION: 1. No evidence of acute/subacute infarct or hemorrhage. 2. 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 A contrast MRI may be helpful and provide more information. 3. Mild sinusitis.
[2018-05-14] MEDS: COREG PO SCH ×2 (12:42→21:38)
--- NOTE | 2018-05-14 13:17 | Progress Note ---
Assessment and Plan Assessment and plan: Mr. Lackey is a 47 yo man with history of CAD/AMI, dyslipidemia, CHF (records at [facility]), hypertension, CKD 3, NIDDM and ex tobacco smoker who presented to [facility] ED with chest pains, dizziness, n/v. His blood pressure was 245/126 with HR 93. He attributed symptoms to Vertigo. He also admits to no medications for 6 months or so. Labs revealed K 5.8, Cr 3.3 (no baseline in our EMR), Troponin of 0.075, LDL 298 and proBNP 4770 * CT head w/o contrast reported as normal * EKG reviewed -Acute kidney injury superimposed on chronic kidney disease 3, vasomotor nephropathy, poa: Renal consulted, repeat levels -Suspected Acute on chronic heart failure suspect HFpEF, poa: start iv lasix stopped by Nephrology, get ECHO, consulted Cardiology, get CXR==>negative -Hypertension malignancy with urgency: treat with iv antihypertensives stat, Monitor blood pressure closely and adjust medications as needed -Type 2 diabetes mellitus: Start on insulin sliding scale and also on basal insulin -Dyslipidemia: Start on statin -Dizziness: workup in process -Elevated troponin, suspect related to renal disease, hypertension defer to Cardiology: consulted Cardiology, treat with asa, statin, -Hyperkalemia, metabolic acidosis from ARF: Patient was given Kayexalate in the ED, Monitor serum electrolytes -Nausea & vomiting, etiology: Continue Zofran as needed -DVT prophylaxis: sq heparin Renal function, Cr decreased today once lasix stopped,. repeat bmp am ECHO still pending Dizziness still remains: carotid doppler and orthostatic vitals were Positive; MRI brain reviewed, no acute stroke, ?vascular malformation, consulted Neurology History Interval history: Patient was seen and examined. Follow-up on current diagnosis of dizziness which is still present. Overnight uneventful. Patient denies any chest pain, shortness breath, nausea/vomiting or severe headaches. Imaging, nursing note, chart, labs and old chart reviewed. Discussed with patient. He denies ever having chest pains. Hospitalist Physical - Physical exam Narrative exam: GEN: WDWN, NAD, Awake, Alert, Orientated x 3, bmi 38.5 HEENT: NCAT, EOMI, PERRL, OP Clear NECK: supple, no adenopathy, no thyromegaly, equivocal JVD CVS/HEART: RRR, normal S1S2, pulses present bilaterally CHEST/LUNGS: diminished bilateral, Symmetrical chest expansion, good air entry bilaterally GI/Abdomen: soft, NTND, good bowel sounds, no guarding or rebound /Bladder: no suprapubic tenderness, no CVA or paraspinal tenderness EXT/Skin: 2+ ble pitting leg edema, no obvious rash MSK: FROM x 4 Neuro: CN 2-12 grossly intact, no new focal deficits, no nystagmus Psych: calm - Constitutional Vitals: Temp Pulse Resp BP Pulse Ox 98.0 F 69 20 157/63 100 05/14/18 11:24 05/14/18 12:42 05/14/18 11:24 05/14/18 12:42 05/14/18 11:24 General appearance: Present: no acute distress Results - Labs CBC & Chem 7: 05/14/18 04:56 05/14/18 04:56 Labs: Laboratory Last Values WBC 7.5 K/mm3 (4.5-11.0) 05/14/18 04:56 RBC 3.88 M/mm3 (3.65-5.03) 05/14/18 04:56 Hgb 11.0 gm/dl (11.8-15.2) L 05/14/18 04:56 Hct 32.7 % (35.5-45.6) L 05/14/18 04:56 MCV 84 fl (84-94) 05/14/18 04:56 MCH 28 pg (28-32) 05/14/18 04:56 MCHC 34 % (32-34) 05/14/18 04:56 RDW 14.4 % (13.2-15.2) 05/14/18 04:56 Plt Count 265 K/mm3 (140-440) 05/14/18 04:56 Lymph % (Auto) 26.8 % (13.4-35.0) 05/11/18 18:42 Bibb % (Auto) 3.6 % (0.0-7.3) 05/11/18 18:42 Eos % (Auto) 1.7 % (0.0-4.3) 05/11/18 18:42 Baso % (Auto) 0.6 % (0.0-1.8) 05/11/18 18:42 Lymph # 2.3 K/mm3 (1.2-5.4) 05/11/18 18:42 Bibb # 0.3 K/mm3 (0.0-0.8) 05/11/18 18:42 Eos # 0.1 K/mm3 (0.0-0.4) 05/11/18 18:42 Baso # 0.0 K/mm3 (0.0-0.1) 05/11/18 18:42 Seg Neutrophils % 67.3 % (40.0-70.0) 05/11/18 18:42 Seg Neutrophils # 5.7 K/mm3 (1.8-7.7) 05/11/18 18:42 Sodium 137 mmol/L (137-145) 05/14/18 04:56 Potassium 4.5 mmol/L (3.6-5.0) 05/14/18 04:56 Chloride 104.4 mmol/L (98-107) 05/14/18 04:56 Carbon Dioxide 20 mmol/L (22-30) L 05/14/18 04:56 Anion Gap 17 mmol/L 05/14/18 04:56 BUN 48 mg/dL (9-20) H 05/14/18 04:56 Creatinine 3.5 mg/dL (0.8-1.5) H 05/14/18 04:56 Estimated GFR 23 ml/min 05/14/18 04:56 BUN/Creatinine Ratio 14 % 05/14/18 04:56 Glucose 117 mg/dL (75-100) H 05/14/18 04:56 POC Glucose 183 (70-105) H 05/14/18 11:37 Calcium 8.2 mg/dL (8.4-10.2) L 05/14/18 04:56 Phosphorus 4.00 mg/dL (2.5-4.5) 05/12/18 16:34 Troponin T 0.072 ng/mL (0.00-0.029) H 05/12/18 00:07 NT-Pro-B Natriuret Pep 4770 pg/mL (0-450) H 05/12/18 00:55 Triglycerides 321 mg/dL (2-149) H 05/11/18 18:42 Cholesterol 374 mg/dL (50-199) H 05/11/18 18:42 LDL Cholesterol Direct 298 mg/dL (50-130) H 05/11/18 18:42 HDL Cholesterol 34 mg/dL (40-59) L 05/11/18 18:42 Cholesterol/HDL Ratio 11.00 % 05/11/18 18:42 TSH 1.480 mlU/mL (0.270-4.200) 05/13/18 13:52 Urine Color Yellow (Yellow) 05/13/18 00:01 Urine Turbidity Clear (Clear) 05/13/18 00:01 Urine pH 6.0 (5.0-7.0) 05/13/18 00:01 Ur Specific [place] 1.009 (1.003-1.030) 05/13/18 00:01 Urine Protein 100 mg/dl mg/dL (Negative) 05/13/18 00:01 Urine Glucose (UA) 50 mg/dL (Negative) 05/13/18 00:01 Urine Ketones Neg mg/dL (Negative) 05/13/18 00:01 Urine Blood Neg (Negative) 05/13/18 00:01 Urine Nitrite Neg (Negative) 05/13/18 00:01 Urine Bilirubin Neg (Negative) 05/13/18 00:01 Urine Urobilinogen < 2.0 mg/dL (<2.0) 05/13/18 00:01 Ur Leukocyte Esterase Neg (Negative) 05/13/18 00:01 Urine WBC (Auto) 1.0 /HPF (0.0-6.0) 05/13/18 00:01 Urine RBC (Auto) < 1.0 /HPF (0.0-6.0) 05/13/18 00:01 U Epithel Cells (Auto) < 1.0 /HPF (0-13.0) 05/13/18 00:01 Urine Mucus Few /HPF 05/13/18 00:01 Urine Creatinine 66.1 mg/dL (0.1-20.0) H 05/13/18 00:01 Urine Sodium 31 mmol/L 05/13/18 00:01 Urine Total Protein 256 mg/dL (5-11.8) H 05/13/18 00:01
[2018-05-14] MEDS: MIRALAX 3350 PO PRN (13:54)
--- NOTE | 2018-05-14 18:51 | Consultation ---
History of Present Illness Consult date: 05/14/18 Requesting physician: JOSUE FERRARO Reason for Consult: dizziness Chief complaint: dizziness History of present illness: This 47-year-old right-handed -Vietnamese male has had episodes of vertigo twice a year for the past 2 years, lasting usually about 2 hours treated with what sounds like Dramamine. He felt vertigo on Monday while he was lying down after his usual sleep time since he works nights but is better now though still a bit lightheaded when he sits up. He was seeing some dark stick figures in his vision during the vertigo which have gone away. He has had no headache or numbness or tingling or speech or swallow difficulty with the vertigo. He had been having nausea for the last 2 days but not today. MRI shows multiple old lacunae including a larger one in the left frontal parasagittal region, smaller subcortical one in the left parietal region and a larger vertically oriented white matter change attributed to possible venous anomaly which otherwise resembling a Maya's finger from [place]. Has some other smaller peripheral lacunes. Very high LDL 298 and triglycerides 321, HDL 34. Was on blood pressure pills but stopped them a few years ago since they were making him too tired to work. He was only on them for 2.5 months. He had been on omega-3-6-9 and cranberry juice mixed with aloe vera and also Hillary juice but stopped those 3 or 4 weeks ago due to expense. 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 denies : smoking (Quit 20 years ago), alcohol abuse (Quit 20 years ago), prescription drug abuse, IV drug use (some illicit drugs 20 years ago but no needles) Family history: CAD (both parents of acute myocardial infarction mother at age 73 and father in his 50s.), diabetes (Brother had type 2 diabetes mellitus multiple sclerosis at age 47), hypertension Medications and Allergies Allergies Allergy/AdvReac Type Severity Reaction Status Date / Time No Known Allergies Allergy Verified 05/11/18 18:27 Home Medications Medication Instructions Recorded Confirmed Last Taken Type No Known Home Medications [No 05/14/18 05/14/18 Unknown History Reported Home Medications] Active Meds: Active Medications Acetaminophen (Tylenol) 650 mg PO Q4H PRN PRN Reason: Pain MILD(1-3)/Fever >100.5/AMAYA Amlodipine Besylate (Norvasc) 10 mg PO QDAY [facility] Last Admin: 05/14/18 09:43 Dose: 10 mg Aspirin (Aspirin) 81 mg PO QDAY [facility] Last Admin: 05/14/18 09:43 Dose: 81 mg Atorvastatin Calcium (Lipitor) 40 mg PO QHS [facility] Last Admin: 05/13/18 21:32 Dose: 40 mg Carvedilol (Coreg) 12.5 mg PO BID [facility] Last Admin: 05/14/18 12:42 Dose: 12.5 mg Dextrose (D50w (25gm) Syringe) 50 ml IV PRN PRN PRN Reason: Hypoglycemia Famotidine (Pepcid) 10 mg PO BID [facility] Last Admin: 05/14/18 09:43 Dose: 10 mg Heparin Sodium (Porcine) (Heparin) 5,000 unit SUB-Q Q12HR [facility] Last Admin: 05/14/18 09:43 Dose: 5,000 unit Hydralazine HCl (Apresoline) 50 mg PO Q8H [facility] Last Admin: 05/14/18 17:39 Dose: 50 mg Hydralazine HCl (Apresoline) 10 mg IV Q6H PRN PRN Reason: Hypertension Last Admin: 05/13/18 17:36 Dose: 10 mg [facility]ulin [facility]) [facility] Last Admin: 05/13/18 21:32 Dose: 15 units Insulin Human Lispro (Humalog) 0 unit SUB-Q [facility]; Protocol Last Admin: 05/14/18 17:39 Dose: 2 unit Meclizine HCl (Antivert) 25 mg PO Q8H PRN PRN Reason: Vertigo Last Admin: 05/13/18 21:32 Dose: 25 mg Ondansetron HCl (Zofran) 4 mg IV Q8H PRN PRN Reason: Nausea And Vomiting Last Admin: 05/13/18 18:06 Dose: 4 mg Polyethylene Glycol (Miralax 3350) 17 gm PO QDAY PRN PRN Reason: Constipation Last Admin: 05/14/18 13:54 Dose: 17 gm Sodium Chloride (Sodium Chloride Flush Syringe 10 Ml) 10 ml IV BID [facility] Last Admin: 05/14/18 09:44 Dose: 10 ml Sodium Chloride (Sodium Chloride Flush Syringe 10 Ml) 10 ml IV PRN PRN PRN Reason: LINE FLUSH Review of Systems All systems: negative (does not often have headaches and occasional tinnitus in the left ear not associated with the dizziness, some snoring of tired but no pauses have been noted, naps for about 30 minutes after lunch at work but not dozing off otherwise though he can be sleepy driving after work. He gets tingling in his feet and a tight feeling in his feet, states he had balance problems as a child.) Physical Examination - Vital Signs Vital Signs: Vital Signs Temp Pulse Resp BP Pulse Ox 98 F 93 H 16 245/126 97 05/11/18 18:28 05/11/18 18:28 05/11/18 18:28 05/11/18 18:28 05/11/18 18:28 - Physical Exam Narrative exam: General Appearance: well developed but obese (per BMI) late 40s - [place] male in [facility]. HEENT: atraumatic, normocephalic; no bruits, 2+ Riki without soreness or induration or enlargement, sclerae nonicteric. Oropharynx pink and moist. Neck: supple, no bruits. Heart: no murmur or extra sounds. Extremities: no clubbing or cyanosis but has 1+ edema. 2+ dorsalis pedis pulses bilaterally. Neurologic Exam: Mental Status: Awake, alert, oriented X 3, speech is clear, names pen and ballpoint of pen, and abstracts well. Names President and Color Matcher, serial 7's are slow with 1 error, no right-left confusion, gets 2 of 3 objects at 3 minutes, spells WORLD backwards correctly. Cranial Nerves: samuel full, no papilledema, SVPs present, PERRLA, EOMs full without nystagmus or diplopia, facial sensation intact to pinprick and light touch, no facial weakness, Lisa is midline, palate rises symmetrically to phonation, shoulder shrug is 5 X 2, tongue protrudes midline. Cerebellar: finger to nose slightly dysmetric on the right, heel to velazquez is intact bilaterally. Sensory: intact to light touch, pinprick is decreased from the mid calves down, decreased vibrations right toes. Double simultaneous stimulation is intact. Motor Exam Upper Extremities: no drift or pronation, Yancy intact. Tanner Rotary Drum Continuous Process are 5 X 2, tone is normal. No atrophy or fasciculations are noted visually. Motor Exam Lower Extremities: no leg lag, quadriceps and anterior tibials and gastrocnemius are 5 X 2. Yancy intact. Tone is normal. No atrophy or fasciculations are noted visually. Reflexes: Palmomental, snout and jaw jerk are negative. Triceps are trace, biceps are trace right and trace to 1 left and brachioradialis are trace right and trace to 1 left. Prema's is negative bilaterally. Knee jerks are trace to 1 right and 1 left and ankle jerks are 0 bilaterally even with reinforcement and without clonus. Toes are downgoing bilaterally to Babinski testing. Results - Laboratory Findings CBC and BMP: 05/14/18 04:56 05/14/18 04:56 Abnormal Lab Findings: Abnormal Labs 05/11/18 05/11/18 05/12/18 18:42 23:27 00:07 Hgb Hct Potassium 5.8 H Carbon Dioxide 19 L BUN 42 H Creatinine 3.3 H Glucose 193 H POC Glucose Calcium Troponin T 0.075 H 0.075 H 0.072 H NT-Pro-B Natriuret Pep Triglycerides 321 H Cholesterol 374 H LDL Cholesterol Direct 298 H HDL Cholesterol 34 L Urine Creatinine Urine Total Protein 05/12/18 05/12/18 05/12/18 00:55 07:07 11:55 Hgb Hct Potassium Carbon Dioxide BUN Creatinine Glucose POC Glucose 153 H 193 H Calcium Troponin T NT-Pro-B Natriuret Pep 4770 H Triglycerides Cholesterol LDL Cholesterol Direct HDL Cholesterol Urine Creatinine Urine Total Protein 05/12/18 05/12/18 05/12/18 16:34 16:59 21:07 Hgb Hct Potassium Carbon Dioxide 21 L BUN 44 H Creatinine 3.5 H Glucose 176 H POC Glucose 192 H 155 H Calcium Troponin T NT-Pro-B Natriuret Pep Triglycerides Cholesterol LDL Cholesterol Direct HDL Cholesterol Urine Creatinine Urine Total Protein 05/13/18 05/13/18 05/13/18 00:01 06:17 07:03 Hgb Hct Potassium Carbon Dioxide 21 L BUN 46 H Creatinine 3.7 H Glucose 118 H POC Glucose 134 H Calcium 8.2 L Troponin T NT-Pro-B Natriuret Pep Triglycerides Cholesterol LDL Cholesterol Direct HDL Cholesterol Urine Creatinine 66.1 H Urine Total Protein 256 H 05/13/18 05/13/18 05/14/18 12:11 21:26 04:56 Hgb 11.0 L Hct 32.7 L Potassium Carbon Dioxide BUN Creatinine Glucose POC Glucose 143 H 144 H Calcium Troponin T NT-Pro-B Natriuret Pep Triglycerides Cholesterol LDL Cholesterol Direct HDL Cholesterol Urine Creatinine Urine Total Protein 05/14/18 05/14/18 05/14/18 04:56 06:33 11:37 Hgb Hct Potassium Carbon Dioxide 20 L BUN 48 H Creatinine 3.5 H Glucose 117 H POC Glucose 123 H 183 H Calcium 8.2 L Troponin T NT-Pro-B Natriuret Pep Triglycerides Cholesterol LDL Cholesterol Direct HDL Cholesterol Urine Creatinine Urine Total Protein 05/14/18 16:32 Hgb Hct Potassium Carbon Dioxide BUN Creatinine Glucose POC Glucose 158 H Calcium Troponin T NT-Pro-B Natriuret Pep Triglycerides Cholesterol LDL Cholesterol Direct HDL Cholesterol Urine Creatinine Urine Total Protein Assessment and Plan Impression: 1. Vertigo 2. Lacunar strokes 3. Abnormal brain MRI Plan: 1. Lesions on MRI in wrong location to give vertigo. 2. Will send him to PT to see if they can do Brandon-Hallpike and horizontal canal testing for possible BPPV, then Deana or horizontal canal maneuver if positive. If negative, may need vestibular exercises. I explained if an inner ear crystal problem (did not mention the term BPPV) is found, the maneuver fixes it at the time, and usually he is told to sit up for for 5 hours and to avoid for 5 nights straight, lying on the symptomatic side. 3. Acutely, next time, could treat with steroid course if not BPPV, adjusting his insulin according to fingerstick glucose. 4. Echo with bubbles is pending. Not enough lesions to suggest a need for 30 day event monitoring unless echo points to the need. 5. Added atorvastatin 40 mg. May need higher dose if he tolerates this dose, probably 80. May need gemfibrozil also or other agent for triglycerides. 50 minutes spent including review of 100s of MRI images. Should repeat MRI because of the suspected venous anomaly, in one year with and without contrast if possible but without contrast if contrast cannot be given due to his renal function. Thank you for an interesting consultation on this pleasant late 40s male. Will sign off, call if questions arise.
--- NOTE | 2018-05-14 21:41 | Progress Note ---
Assessment and Plan - Patient Problems (1) Acute kidney injury superimposed on chronic kidney disease Current Visit: Yes Status: Acute Plan to address problem: Acute kidney injury probably superimposed on chronic kidney disease. Chronic kidney disease presumably secondary to diabetic nephropathy/hypertensive nephrosclerosis. Acute kidney injury etiology uncertain. Kidney function is not significantly changed. Patient has nephrotic range proteinuria suggesting baseline diabetic nephropathy. Follow-up electrolytes and renal function. (2) Dizziness Current Visit: Yes Status: Acute Plan to address problem: We'll check orthostatic blood pressures and follow up standing blood pressure and avoid standing hypotension (3) Hyperkalemia Current Visit: Yes Status: Acute Plan to address problem: Secondary to decreased potassium clearance with advanced chronic kidney disease. Also need to consider type IV renal tubular acidosis in the setting of diabetic nephropathy. Potassium back to normal (4) Hypertensive chronic kidney disease with stage 1 through stage 4 chronic kidney disease, or unspecified chronic kidney disease Current Visit: Yes Status: Acute Plan to address problem: Follow-up blood pressure on adjusted medications. Expressed the importance of controlling his blood pressure long-term to avoid strokes, heart attacks, retinopathy, and worsening kidney function (5) Type 2 diabetes mellitus with diabetic nephropathy Current Visit: Yes Status: Acute Plan to address problem: Blood sugar management by primary attending. Also stressed importance of good blood sugar control (6) Chronic systolic CHF (congestive heart failure) Current Visit: Yes Status: Acute Plan to address problem: Does not appear to have acute exacerbation. We'll hold Lasix and follow patient 's clinical symptoms and signs (7) Hyperlipidemia Current Visit: Yes Status: Acute Plan to address problem: Needs to be back on a statin. Subjective Date of service: 05/14/18 Principal diagnosis: chronic kidney disease, severe hypertension Interval history: Patient seen lying in bed. Still complains of dizziness. Feels lightheadedness when he turns his head but it is worse when he sits OR stands up. No chest pain or shortness of breath. No nausea or vomiting. Objective - Exam Narrative Exam: Obese middle-aged -Hungarian male lying in bed in no acute distress HEENT: NCAT, pink oral mucous membrane Neck: Supple, no venous distention CVS: S1S2 RRR with no murmur, rub or gallop Chest: Clear to auscultation Abdomen: Protuberant, soft, nontender, no organomegaly, bowel sounds are present Extremities: Mild edema with pigmentary changes in both legs Skin warm and dry with hyperpigmentation and legs Genitourinary deferred Neuro: Awake, alert no focal deficits - Vital Signs Vital signs: Vital Signs - 12hr 05/14/18 05/14/18 05/14/18 09:43 09:52 10:00 Temperature Pulse Rate 69 69 Pulse Rate [ 69 From Monitor] Respiratory 20 Rate Blood Pressure 157/63 157/63 Blood Pressure [Left] O2 Sat by Pulse 96 Oximetry 05/14/18 05/14/18 05/14/18 11:24 12:42 16:23 Temperature 98.0 F 98.2 F Pulse Rate 71 69 71 Pulse Rate [ From Monitor] Respiratory 20 20 Rate Blood Pressure 190/101 157/63 140/69 Blood Pressure [Left] O2 Sat by Pulse 100 97 Oximetry 05/14/18 05/14/18 17:39 20:00 Temperature 97.5 F L Pulse Rate 71 78 Pulse Rate [ From Monitor] Respiratory 20 Rate Blood Pressure 140/69 Blood Pressure 151/61 [Left] O2 Sat by Pulse 99 Oximetry - Lab 05/14/18 04:56 05/14/18 04:56 Most recent lab results Calcium 8.2 mg/dL (8.4-10.2) L 05/14/18 04:56 Phosphorus 4.00 mg/dL (2.5-4.5) 05/12/18 16:34 Urine Creatinine 66.1 mg/dL (0.1-20.0) H 05/13/18 00:01 Urine Sodium 31 mmol/L 05/13/18 00:01 Urine Total Protein 256 mg/dL (5-11.8) H 05/13/18 00:01
[2018-05-14] MEDS: ANTIVERT PO PRN (21:42)
[2018-05-14] MEDS: LANTUS SUB-Q SCH (22:50)
[2018-05-15] MEDS: APRESOLINE PO SCH ×4 (01:50→22:31)
[2018-05-15 05:45] LABS: Hematocrit 31.7 % (35.5-45.6); Hemoglobin 10.4 gm/dl (11.8-15.2); Mean Corpuscular HGB Conc 33 % (32-34); Mean Corpuscular Hemoglobin 28 pg (28-32); Mean Corpuscular Volume 84 fl (84-94); Platelet Count 241 K/mm3 (140-440); Red Blood Count 3.76 M/mm3 (3.65-5.03); Red Cell Distribution Width 14.6 % (13.2-15.2)
[2018-05-15 06:10] LABS: Calcium 8.2 mg/dL (8.4-10.2)
[2018-05-15] MEDS: HumaLOG SUB-Q SCH ×4 (07:30→22:33)
--- NOTE | 2018-05-15 11:18 | Progress Note ---
Assessment and Plan Assessment and plan: Acute kidney injury superimposed on chronic kidney disease Acute kidney injury probably superimposed on chronic kidney disease. Chronic kidney disease presumably secondary to diabetic nephropathy/hypertensive nephrosclerosis. Acute kidney injury etiology uncertain. Kidney function is not significantly changed. Patient has nephrotic range proteinuria suggesting baseline diabetic nephropathy. Follow-up electrolytes and renal function. BPV PT to perform [place]-Hallpike and horizontal canal testing for possible BPPV, then Deana or horizontal canal maneuver if positive. If negative, may need vestibular exercises. Cont Meclizine Lacunar Strokes. Statin added. Cont ASA. for secondary prevention. However, sxs do not match location of CVA per Neurology. Await PT eval Hyperkalemia Secondary to decreased potassium clearance with advanced chronic kidney disease. Also need to consider type IV renal tubular acidosis in the setting of diabetic nephropathy. Potassium back to normal Hypertensive chronic kidney disease with stage 1 through stage 4 chronic kidney disease, or unspecified chronic kidney disease Cont per Renal Type 2 diabetes mellitus with diabetic nephropathy Cont. Lantus, SSRI and ADA diet. Also stressed importance of good blood sugar control Chronic systolic CHF (congestive heart failure) Does not appear to have acute exacerbation. We'll hold Lasix and follow patient 's clinical symptoms and signs Hyperlipidemia Cont Lipitor History Interval history: No new issues Hospitalist Physical - Constitutional Vitals: Temp Pulse Resp BP Pulse Ox 98.3 F 66 18 155/76 97 05/15/18 08:00 05/15/18 08:00 05/15/18 08:00 05/15/18 08:00 05/15/18 08:00 General appearance: Present: no acute distress - EENT Eyes: Present: PERRL, EOM intact ENT: hearing intact, clear oral mucosa, dentition normal - Neck Neck: Present: supple, normal ROM - Respiratory Respiratory effort: normal Respiratory: bilateral: CTA - Cardiovascular Rhythm: regular Heart Sounds: Present: S1 & S2. Absent: gallop, rub - Extremities Extremities: no ischemia, No edema, Full ROM - Abdominal General gastrointestinal: soft, non-tender, non-distended, normal bowel sounds - Integumentary Integumentary: Present: clear, warm, dry - Neurologic Neurologic: CNII-XII intact, moves all extremities Results - Labs CBC & Chem 7: 05/15/18 05:33 05/15/18 05:33 Labs: Laboratory Last Values WBC 6.4 K/mm3 (4.5-11.0) 05/15/18 05:33 RBC 3.76 M/mm3 (3.65-5.03) 05/15/18 05:33 Hgb 10.4 gm/dl (11.8-15.2) L 05/15/18 05:33 Hct 31.7 % (35.5-45.6) L 05/15/18 05:33 MCV 84 fl (84-94) 05/15/18 05:33 MCH 28 pg (28-32) 05/15/18 05:33 MCHC 33 % (32-34) 05/15/18 05:33 RDW 14.6 % (13.2-15.2) 05/15/18 05:33 Plt Count 241 K/mm3 (140-440) 05/15/18 05:33 Lymph % (Auto) 26.8 % (13.4-35.0) 05/11/18 18:42 [place]rie % (Auto) 3.6 % (0.0-7.3) 05/11/18 18:42 Eos % (Auto) 1.7 % (0.0-4.3) 05/11/18 18:42 Baso % (Auto) 0.6 % (0.0-1.8) 05/11/18 18:42 Lymph # 2.3 K/mm3 (1.2-5.4) 05/11/18 18:42 Guthrie # 0.3 K/mm3 (0.0-0.8) 05/11/18 18:42 Eos # 0.1 K/mm3 (0.0-0.4) 05/11/18 18:42 Baso # 0.0 K/mm3 (0.0-0.1) 05/11/18 18:42 Seg Neutrophils % 67.3 % (40.0-70.0) 05/11/18 18:42 Seg Neutrophils # 5.7 K/mm3 (1.8-7.7) 05/11/18 18:42 Sodium 136 mmol/L (137-145) L 05/15/18 05:33 Potassium 4.5 mmol/L (3.6-5.0) 05/15/18 05:33 Chloride 103.8 mmol/L (98-107) 05/15/18 05:33 Carbon Dioxide 20 mmol/L (22-30) L 05/15/18 05:33 Anion Gap 17 mmol/L 05/15/18 05:33 BUN 50 mg/dL (9-20) H 05/15/18 05:33 Creatinine 3.6 mg/dL (0.8-1.5) H 05/15/18 05:33 Estimated GFR 22 ml/min 05/15/18 05:33 BUN/Creatinine Ratio 14 % 05/15/18 05:33 Glucose 116 mg/dL (75-100) H 05/15/18 05:33 POC Glucose 107 (70-105) H 05/15/18 07:02 Calcium 8.2 mg/dL (8.4-10.2) L 05/15/18 05:33 Phosphorus 4.00 mg/dL (2.5-4.5) 05/12/18 16:34 Troponin T 0.072 ng/mL (0.00-0.029) H 05/12/18 00:07 NT-Pro-B Natriuret Pep 4770 pg/mL (0-450) H 05/12/18 00:55 Triglycerides 321 mg/dL (2-149) H 05/11/18 18:42 Cholesterol 374 mg/dL (50-199) H 05/11/18 18:42 LDL Cholesterol Direct 298 mg/dL (50-130) H 05/11/18 18:42 HDL Cholesterol 34 mg/dL (40-59) L 05/11/18 18:42 Cholesterol/HDL Ratio 11.00 % 05/11/18 18:42 TSH 1.480 mlU/mL (0.270-4.200) 05/13/18 13:52 Urine Color Yellow (Yellow) 05/13/18 00:01 Urine Turbidity Clear (Clear) 05/13/18 00:01 Urine pH 6.0 (5.0-7.0) 05/13/18 00:01 Ur Specific [place] 1.009 (1.003-1.030) 05/13/18 00:01 Urine Protein 100 mg/dl mg/dL (Negative) 05/13/18 00:01 Urine Glucose (UA) 50 mg/dL (Negative) 05/13/18 00:01 Urine Ketones Neg mg/dL (Negative) 05/13/18 00:01 Urine Blood Neg (Negative) 05/13/18 00:01 Urine Nitrite Neg (Negative) 05/13/18 00:01 Urine Bilirubin Neg (Negative) 05/13/18 00:01 Urine Urobilinogen < 2.0 mg/dL (<2.0) 05/13/18 00:01 Ur Leukocyte Esterase Neg (Negative) 05/13/18 00:01 Urine WBC (Auto) 1.0 /HPF (0.0-6.0) 05/13/18 00:01 Urine RBC (Auto) < 1.0 /HPF (0.0-6.0) 05/13/18 00:01 U Epithel Cells (Auto) < 1.0 /HPF (0-13.0) 05/13/18 00:01 Urine Mucus Few /HPF 05/13/18 00:01 Urine Creatinine 66.1 mg/dL (0.1-20.0) H 05/13/18 00:01 Urine Sodium 31 mmol/L 05/13/18 00:01 Urine Total Protein 256 mg/dL (5-11.8) H 05/13/18 00:01
[2018-05-15] MEDS: HEPARIN SUB-Q SCH ×2 (11:20→22:33)
[2018-05-15] MEDS: COREG PO SCH ×2 (11:21→22:30)
[2018-05-15] MEDS: NORVASC PO SCH (11:21)
[2018-05-15] MEDS: ANTIVERT PO PRN (11:21)
[2018-05-15] MEDS: ASPIRIN PO SCH (11:21)
[2018-05-15] MEDS: PEPCID PO SCH ×2 (11:22→22:30)
[2018-05-15] MEDS: SODIUM CHLORIDE FLUSH SYRINGE 10 ML IV SCH ×2 (11:23→22:34)
--- NOTE | 2018-05-15 13:15 | Progress Note ---
Assessment and Plan Vertigo Chronic renal failure Hypertension Diabetes Hx of Cardiomyopathy EF 40-45% on echo this admission. pt follows with Wilner Lacy. Subjective Date of service: 05/15/18 Principal diagnosis: chronic kidney disease, severe hypertension Interval history: Patient complains of dizziness. He denies shortness of breath, chest pain and palpitations. Objective Vital Signs Temp Pulse Resp BP BP Pulse Ox 05/15/18 08:00 98.3 F 66 18 155/76 97 05/15/18 04:58 98.2 F 66 20 149/72 99 05/15/18 01:01 98.1 F 72 20 143/76 96 05/15/18 00:59 98.3 F 66 20 141/62 95 05/15/18 00:00 98.3 F 79 20 133/74 95 05/14/18 20:00 97.5 F L 78 20 151/61 99 05/14/18 17:39 71 140/69 05/14/18 16:23 98.2 F 71 20 140/69 97 - Physical Examination General: No Apparent Distress HEENT: Positive: PERRL Cardiac: Positive: Reg Rate and Rhythm Neuro: Positive: Cranial Nerve 2-12 Intact Extremities: Absent: edema - Labs and Meds CBC 05/15/18 Range/Units 05:33 WBC 6.4 (4.5-11.0) K/mm3 RBC 3.76 (3.65-5.03) M/mm3 Hgb 10.4 L (11.8-15.2) gm/dl Hct 31.7 L (35.5-45.6) % Plt Count 241 (140-440) K/mm3 Comprehensive Metabolic Panel 05/15/18 Range/Units 05:33 Sodium 136 L (137-145) mmol/L Potassium 4.5 (3.6-5.0) mmol/L Chloride 103.8 (98-107) mmol/L Carbon Dioxide 20 L (22-30) mmol/L BUN 50 H (9-20) mg/dL Creatinine 3.6 H (0.8-1.5) mg/dL Glucose 116 H (75-100) mg/dL Calcium 8.2 L (8.4-10.2) mg/dL
[2018-05-15] MEDS: MIRALAX 3350 PO PRN (18:40)
--- NOTE | 2018-05-15 19:27 | Progress Note ---
Assessment and Plan - Patient Problems (1) Acute kidney injury superimposed on chronic kidney disease Current Visit: Yes Status: Acute Plan to address problem: Acute kidney injury probably superimposed on chronic kidney disease. Chronic kidney disease presumably secondary to diabetic nephropathy/hypertensive nephrosclerosis. Acute kidney injury etiology uncertain. Kidney function is not significantly changed. Patient has nephrotic range proteinuria suggesting baseline diabetic nephropathy. Follow-up electrolytes and renal function. (2) Dizziness Current Visit: Yes Status: Acute Plan to address problem: Follow up orthostatic blood pressures and avoid standing hypotension (3) Hyperkalemia Current Visit: Yes Status: Acute Plan to address problem: Secondary to decreased potassium clearance with advanced chronic kidney disease. Also need to consider type IV renal tubular acidosis in the setting of diabetic nephropathy. Potassium back to normal (4) Hypertensive chronic kidney disease with stage 1 through stage 4 chronic kidney disease, or unspecified chronic kidney disease Current Visit: Yes Status: Acute Plan to address problem: Episode of low blood pressure earlier. Decrease hydralazine to twice daily. Follow-up blood pressure on adjusted medications. Expressed the importance of controlling his blood pressure long-term to avoid strokes, heart attacks, retinopathy, and worsening kidney function (5) Type 2 diabetes mellitus with diabetic nephropathy Current Visit: Yes Status: Acute Plan to address problem: Blood sugar management by primary attending. Also stressed importance of good blood sugar control (6) Chronic systolic CHF (congestive heart failure) Current Visit: Yes Status: Acute Plan to address problem: Continue to monitor for signs of volume overload (7) Hyperlipidemia Current Visit: Yes Status: Acute Plan to address problem: Needs to be back on a statin. Subjective Date of service: 05/15/18 Principal diagnosis: chronic kidney disease, severe hypertension Interval history: Patient seen lying in bed. Still complains of dizziness but it is improving. Had physical therapy earlier. No nausea or vomiting. Objective - Exam Narrative Exam: Obese middle-aged -[place] male lying in bed in no acute distress HEENT: NCAT, pink oral mucous membrane Neck: Supple, no venous distention CVS: S1S2 RRR with no murmur, rub or gallop Chest: Clear to auscultation Abdomen: Protuberant, soft, nontender, no organomegaly, bowel sounds are present Extremities: Mild edema with pigmentary changes in both legs Skin warm and dry with hyperpigmentation and legs Genitourinary deferred Neuro: Awake, alert no focal deficits - Vital Signs Vital signs: Vital Signs - 12hr 05/15/18 05/15/18 05/15/18 08:00 12:00 16:00 Temperature 98.3 F 98.1 F 97.7 F Pulse Rate 69 69 Respiratory 18 18 Rate Blood Pressure Blood Pressure 155/76 116/65 [Left] O2 Sat by Pulse 97 98 Oximetry 05/15/18 16:19 Temperature Pulse Rate 70 Respiratory 18 Rate Blood Pressure 161/79 Blood Pressure [Left] O2 Sat by Pulse 99 Oximetry - Lab 05/15/18 05:33 05/15/18 05:33 Most recent lab results Calcium 8.2 mg/dL (8.4-10.2) L 05/15/18 05:33 Phosphorus 4.00 mg/dL (2.5-4.5) 05/12/18 16:34 Urine Creatinine 66.1 mg/dL (0.1-20.0) H 05/13/18 00:01 Urine Sodium 31 mmol/L 05/13/18 00:01 Urine Total Protein 256 mg/dL (5-11.8) H 05/13/18 00:01
[2018-05-15] MEDS: LANTUS SUB-Q SCH (22:33)
[2018-05-16] MEDS: HumaLOG SUB-Q SCH ×2 (08:22→12:47)
--- NOTE | 2018-05-16 08:52 | Progress Note ---
Assessment and Plan Vertigo Chronic renal failure Hypertension Diabetes Hx of Cardiomyopathy EF 40-45% on echo this admission. pt follows with Wilner Lacy. 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 Otherwise, conservative cardiac management. 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 Subjective Date of service: 05/16/18 Principal diagnosis: chronic kidney disease, severe hypertension Interval history: Patient reports less dizziness. He denies chest pain and shortness of breath. Objective Vital Signs Temp Pulse Resp BP BP Pulse Ox 05/16/18 04:20 65 05/16/18 04:17 98.2 F 65 18 140/64 96 05/16/18 00:31 78 146/77 93 05/16/18 00:30 73 141/73 98 05/15/18 23:57 98.4 F 69 18 159/72 95 05/15/18 22:31 71 167/85 05/15/18 22:30 71 167/85 05/15/18 21:25 73 05/15/18 19:24 98.4 F 74 18 167/85 96 05/15/18 16:19 70 18 161/79 99 05/15/18 16:00 97.7 F 05/15/18 12:00 98.1 F 69 18 116/65 98 - Physical Examination General: No Apparent Distress HEENT: Positive: PERRL Cardiac: Positive: Reg Rate and Rhythm Lungs: Positive: Decreased Breath Sounds Neuro: Positive: Cranial Nerve 2-12 Intact Extremities: Absent: edema
--- NOTE | 2018-05-16 09:17 | Discharge Summary ---
Providers - Providers Date of Admission: 05/12/18 01:03 Date of discharge: 05/16/18 Attending physician: SEPIDEH GARCIA 05/12/18 01:03 Consult to Physician [CONS] Routine Comment: Consulting Provider: CONRAD LINARES Physician Instructions: Reason For Exam: ckd 05/12/18 08:49 Consult to Physician [CONS] Routine Comment: Consulting Provider: KEITH RILEY Physician Instructions: Reason For Exam: Evaluate for NSTEMI, CHF, uncontrolled hypertensio 05/14/18 13:17 Consult to Physician [CONS] Routine Comment: Consulting Provider: MARITZA BECK Physician Instructions: Reason For Exam: persistent Dizziness 05/14/18 18:05 Physical Therapy Evaluation and Treat [CONS] Urgent Comment: please check Angelique-Hallpike/horiz canal, do Epleyetc Reason For Exam: vertigo Primary care physician: CAMERA PERSON Hospitalization Reason for admission: vertigo Condition: Fair Hospital course: This 47-year-old right-handed -[place] male has had episodes of vertigo twice a year for the past 2 years, lasting usually about 2 hours treated with what sounds like Dramamine. 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 Has some other smaller peripheral lacunes. Patient also had high LDL 298 and triglycerides 321, HDL 34. Patient was seen by neurology in consultation who added statin and aspirin for secondary prevention for the lacunar strokes. However, neurology felt that the symptoms did not match the anatomy from the location of CVAs on MRI. Etiology was felt to be secondary to BPV. Therefore, patient was seen by physical therapy in consultation who performed vestibular rehabilitation, balance training and neuromuscular reeducation. Physical therapy recommended outpatient PT. the patient was also seen by nephrology who felt patient had acute kidney injury superimposed on chronic kidney disease. However kidney function was not significantly changed. Dedicated discharge time 32 minutes. 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 Diabetes mellitus complication status: with kidney complications Diabetes mellitus complication detail: with chronic kidney disease Chronic kidney disease stage : stage 4 (severe) Qualified Code(s): E11.22 - Type 2 diabetes mellitus with diabetic chronic kidney disease; N18.4 - Chronic kidney disease, stage 4 (severe ); 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 Absent: rub, click - Extremities Extremities: pulses symmetrical, No edema Peripheral Pulses: within normal limits - Abdominal General gastrointestinal: Present: soft, non-tender, non-distended, normal bowel sounds Male genitourinary: Present: normal - Integumentary Integumentary: Present: clear, warm, dry - Musculoskeletal Musculoskeletal: gait normal, strength equal bilaterally - Psychiatric Psychiatric: appropriate mood/affect, intact judgment & insight - Neurologic Neurologic: CNII-XII intact, moves all extremities Plan Activity: no restrictions Weight Bearing Status: Full Weight Bearing Diet: renal Follow up with: PRIMARY CARE, [Primary Care Provider] - 3-5 Days Prescriptions: amLODIPine [Norvasc] 10 mg PO QDAY #30 tablet Aspirin [Aspirin TAB] 81 mg PO QDAY #30 tablet AtorvaSTATin [Lipitor] 40 mg PO QHS #30 tablet Carvedilol [Coreg] 12.5 mg PO BID #60 tablet Famotidine [Pepcid] 10 mg PO BID #60 tablet hydrALAZINE [Apresoline TAB] 50 mg PO Q12HR #60 tablet Insulin Glargine [Lantus VIAL] 15 units SUB-Q QHS #30 units Meclizine [Antivert] 25 mg PO Q8H PRN #60 tablet PRN Reason: Vertigo
[2018-05-16] MEDS: PEPCID PO SCH (09:24)
[2018-05-16] MEDS: COREG PO SCH (09:24)
[2018-05-16] MEDS: APRESOLINE PO SCH (09:25)
[2018-05-16] MEDS: ASPIRIN PO SCH (09:26)
[2018-05-16] MEDS: NORVASC PO SCH (09:26)
[2018-05-16] MEDS: HEPARIN SUB-Q SCH (09:27)
[2018-05-16] MEDS: SODIUM CHLORIDE FLUSH SYRINGE 10 ML IV SCH (09:35)
[2018-05-16 12:36] VITALS: BP 154/79
== END 2018-05-16 13:55 | disposition home or self-care (01) | DRG 699 ==
LOC: ED 18:10 → 4A 05-12 01:03
PROVIDERS: ADMIT Internal Medicine; ATTEND Hospitalist
DX: N25.89 Other disorders resulting from impaired renal tubular function (principal); I13.0 Hypertensive heart and chronic kidney disease with heart failure and stage 1 through stage 4 chronic kidney disease, or unspecified chronic kidney disease; I50.22 Chronic systolic (congestive) heart failure; I42.9 Cardiomyopathy, unspecified; E87.2 Acidosis; E87.5 Hyperkalemia; N18.4 Chronic kidney disease, stage 4 (severe); H81.10 Benign paroxysmal vertigo, unspecified ear; M19.90 Unspecified osteoarthritis, unspecified site; E78.5 Hyperlipidemia, unspecified; E11.22 Type 2 diabetes mellitus with diabetic chronic kidney disease; I25.10 Atherosclerotic heart disease of native coronary artery without angina pectoris; I16.0 Hypertensive urgency; E11.21 Type 2 diabetes mellitus with diabetic nephropathy; I25.2 Old myocardial infarction; Z87.891 Personal history of nicotine dependence; Z82.49 Family history of ischemic heart disease and other diseases of the circulatory system; Z83.3 Family history of diabetes mellitus; Z91.19 Patient's noncompliance with other medical treatment and regimen; N17.9 Acute kidney failure, unspecified
CPT/HCPCS: 36415; 70450; 70551; 71045; 80048; 80061; 81001; 82570; 82962; 83880; 84100; 84156; 84300; 84443; 84484; 85025; 85027; 93005; 93010; 93306; 93880; 94644; 96374; 96375; A9270-GY; J0360; J1644; J1815; J2405